=== PATIENT | female | born 1985 | race Two or more races ===

== ENCOUNTER 2024-09-19 08:19 | Emergency (ER) | payer MEDICAID, OTHER ==
[~2024-09-19] VITALS: Ht 172.7 cm; Wt 68.0 kg
[2024-09-19] MEDS: HYDROcodone-ACET 5/325MG TAB PO ONE (09:03)
[2024-09-19 09:12] VITALS: BP 103/67; PULSE 62; RESP 20; TEMP 98.8; O2SAT 99
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
--- NOTE | 2024-09-19 09:33 | DVH ---
INDICATION: Trauma COMPARISON: None TECHNIQUE: 2 views of the lumbar spine were obtained. FINDINGS: The lumbar vertebral alignment is normal. The intervertebral disc spaces are well-maintained. No significant facet arthropathy is noted. No acute fracture, vertebral compression deformity or aggressive osseous lesions. The paravertebral soft tissues are grossly unremarkable. IMPRESSION: No acute fracture.
--- NOTE | 2024-09-19 09:33 | DVH ---
INDICATION: Trauma COMPARISON: None TECHNIQUE: 4 views of the cervical spine were obtained. FINDINGS: The cervical vertebral alignment is normal. The predental space is normal. The intervertebral disc spaces are well-maintained. No significant facet arthropathy is noted. No acute fracture, vertebral compression deformity or aggressive osseous lesions. The imaged lung apices are unremarkable. IMPRESSION: No acute fracture.
[2024-09-19] MEDS ORDERED: METH-1182 PO (09:59)
[2024-09-19] MEDS ORDERED: IBUP-1456 PO (09:59)
== END 2024-09-19 10:03 | disposition home or self-care (01) ==
LOC: EDBD 08:19 → ER 08:19
DX: S16.1XXA Strain of muscle, fascia and tendon at neck level, initial encounter (principal); S39.012A Strain of muscle, fascia and tendon of lower back, initial encounter; V43.52XA Car driver injured in collision with other type car in traffic accident, initial encounter; Y93.I9 Activity, other involving external motion; Y92.89 Other specified places as the place of occurrence of the external cause; Y99.8 Other external cause status
CPT/HCPCS: 72040; 72100

== ENCOUNTER 2024-09-21 10:43 | Emergency (ER) | payer MEDICAID, OTHER ==
[~2024-09-21] VITALS: Ht 167.6 cm; Wt 69.2 kg
[~2024-09-21 10:43] MED LIST: IBUP-1456 PO; METH-1182 PO
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
[2024-09-21] MEDS: KETOROLAC TROMETH 60MG/2ML VIAL IM ONE (12:30)
[2024-09-21 12:33] VITALS: BP 127/76; PULSE 76; RESP 16; TEMP 98.5; O2SAT 100
== END 2024-09-21 12:50 | disposition home or self-care (01) ==
LOC: ER 10:43
DX: S16.1XXA Strain of muscle, fascia and tendon at neck level, initial encounter (principal); S39.012A Strain of muscle, fascia and tendon of lower back, initial encounter; Z79.1 Long term (current) use of non-steroidal anti-inflammatories (NSAID); V43.52XA Car driver injured in collision with other type car in traffic accident, initial encounter; Y93.89 Activity, other specified; Y92.488 Other paved roadways as the place of occurrence of the external cause; Y99.8 Other external cause status
CPT/HCPCS: 96372; 99283; J1885